=== PATIENT | male | born 1980 | race Caucasian/White ===

== ENCOUNTER 2018-06-11 15:01 | Emergency (ER) | payer OTHER ==
[2018-06-11 15:18] VITALS: BP 143/81; PULSE 68; RESP 18; TEMP 98.3
[2018-06-11] MEDS ORDERED: ONDANSETRON 4 MG/2 ML VIAL IVP STA (15:46)
[2018-06-11] MEDS ORDERED: SODIUM CHLORIDE 0.9% 1,000 ML IV STA (15:46)
[2018-06-11] MEDS ORDERED: MORPHINE SULFATE 4 MG/ML SYRINGE IV STA (15:46)
--- NOTE | 2018-06-11 15:48 | ED ---
General Adult HPI - General Chief complaint: Abdominal Pain Stated complaint: Abd pain Time Seen by Provider: 06/11/18 15:34 Source: patient Mode of arrival: ambulatory Limitations: no limitations - History of Present Illness Initial comments: Dictation was produced using [email or web address] dictation software. please excuse any grammatical, word or spelling errors. Chief Complaint: 38-year-old male past medical history of diverticulitis presents with left lower quadrant abdominal pain. History of Present Illness: There is 38-year-old male. Last year he had an episode of diverticulitis. He states that over the last 2-3 days he's been having left lower quadrant abdominal pain. He states that it reminds him of the time he was diagnosed with diverticulitis. Patient decided come to the emergency department because he was at work and felt like his symptoms were getting worse. Denies any constitutional symptoms. Patient still tolerating by mouth. Denies any changes in bowel habits. No dysuria. Denies any flank pain. The ROS documented in this emergency department record has been reviewed and confirmed by me. Those systems with pertinent positive or negative responses have been documented in the HPI. All other systems are other negative and/or noncontributory. PHYSICAL EXAM: General Impression: Alert and oriented x3, mild distress secondary to pain HEENT: Normocephalic atraumatic, extra-ocular movements intact, pupils equal and reactive to light bilaterally, mucous membranes moist. Cardiovascular: Heart regular rate and rhythm, S1&S2 audible, no murmurs, rubs or gallops Chest: Lungs clear to auscultation bilaterally, no rhonchi, no wheeze, no rales Abdomen: Bowel sounds present, abdomen soft, tenderness to the left lower quadrant Musculoskeletal: Pulses present and equal in all extremities, no peripheral edema Motor: no focal deficits noted Neurological: CN II-XII grossly intact, no focal motor or sensory deficits noted Skin: Intact with no visualized rashes Psych: Normal affect and mood ED course: 38-year-old male presents with chief complaint of left lower quadrant abdominal pain. He has a history of diverticulitis. Vital signs upon arrival are within acceptable limits.Laboratory evaluation tape it looks that doesn't 12.3. Rest of CBC unremarkable. Metabolic panel is unremarkable. Abdominal labs negative. Urinalysis is negative. X-rays unremarkable. Patient reevaluated with improvement of his abdominal symptoms. Clinical presentation consistent with diverticulitis. Given well-appearing nature of patient and benign labs likely uncomplicated. Decided with patient to proceed with the outpatient route. Patient given by mouth antibiotics, pain medications. Patient given referral to primary care physician for outpatient management of symptoms. Return parameters discussed. Patient understandable and agreeable to disposition. - Related Data Home Medications Medication Instructions Recorded Confirmed Ibuprofen [Motrin Ib] 400 mg PO Q8H 06/11/18 06/11/18 Previous Rx's Medication Instructions Recorded HYDROcodone/APAP 5-325MG [[place] 1 tab PO Q6HR PRN 3 Days #12 tab 06/11/18 5-325] Levofloxacin 750 mg PO DAILY #10 tablet 06/11/18 metroNIDAZOLE [Flagyl] 500 mg PO TID 10 Days #30 tab 06/11/18 Allergies Allergy/AdvReac Type Severity Reaction Status Date / Time iodine Allergy Rash/Hives Verified 06/11/18 15:19 shellfish derived [Shellfish] Allergy Rash/Hives Verified 06/11/18 15:51 Review of Systems ROS Statement: Those systems with pertinent positive or pertinent negative responses have been documented in the HPI. ROS Other: All systems not noted in ROS Statement are negative. Past Medical History Additional Past Medical History / Comment(s): divirticulitis, heart murmur History of Any Multi-Drug Resistant Organisms: None Reported Past Surgical History: Appendectomy Past Psychological History: No Psychological Hx Reported Smoking Status: Current some day smoker Past Alcohol Use History: Occasional Past Drug Use History: Marijuana General Exam Limitations: no limitations Course Vital Signs 06/11/18 15:12 Temperature 98.3 F Pulse Rate 68 Respiratory 18 Rate Blood Pressure 143/81 O2 Sat by Pulse 96 Oximetry Medical Decision Making - Lab Data Result diagrams: 06/11/18 15:30 06/11/18 15:30 Lab Results 06/11/18 06/11/18 06/11/18 Range/Units 15:30 15:30 16:00 WBC 12.3 H (3.8-10.6) k/uL RBC 4.70 (4.30-5.90) m/uL Hgb 14.1 (13.0-17.5) gm/dL Hct 42.1 (39.0-53.0) % MCV 89.7 (80.0-100.0) fL MCH 30.1 (25.0-35.0) pg MCHC 33.6 (31.0-37.0) g/dL RDW 13.5 (11.5-15.5) % Plt Count 256 (150-450) k/uL Neutrophils % 74 % Lymphocytes % 14 % Monocytes % 6 % Eosinophils % 5 % Basophils % 1 % Neutrophils # 9.0 H (1.3-7.7) k/uL Lymphocytes # 1.8 (1.0-4.8) k/uL Monocytes # 0.7 (0-1.0) k/uL Eosinophils # 0.6 (0-0.7) k/uL Basophils # 0.1 (0-0.2) k/uL Sodium 140 (137-145) mmol/L Potassium 4.4 (3.5-5.1) mmol/L Chloride 107 (98-107) mmol/L Carbon Dioxide 24 (22-30) mmol/L Anion Gap 9 mmol/L BUN 19 (9-20) mg/dL Creatinine 0.95 (0.66-1.25) mg/dL Est GFR (CKD-EPI)AfAm >90 (>60 ml/min/1.73 sqM) Est GFR (CKD-EPI)NonAf >90 (>60 ml/min/1.73 sqM) Glucose 79 (74-99) mg/dL Calcium 9.9 (8.4-10.2) mg/dL Total Bilirubin 0.4 (0.2-1.3) mg/dL AST 24 (17-59) U/L ALT 24 (21-72) U/L Alkaline Phosphatase 68 (38-126) U/L Total Protein 6.9 (6.3-8.2) g/dL Albumin 4.4 (3.5-5.0) g/dL Lipase 75 (23-300) U/L Urine Color Yellow Urine Appearance Cloudy (Clear) Urine pH 7.0 (5.0-8.0) Ur Specific [place] 1.020 (1.001-1.035) Urine Protein Negative (Negative) Urine Glucose (UA) Negative (Negative) Urine Ketones Negative (Negative) Urine Blood Negative (Negative) Urine Nitrite Negative (Negative) Urine Bilirubin Negative (Negative) Urine Urobilinogen <2.0 (<2.0) mg/dL Ur Leukocyte Esterase Negative (Negative) Urine RBC 1 (0-5) /hpf Urine WBC 3 (0-5) /hpf Ur Squamous Epith Cells <1 (0-4) /hpf Urine Bacteria Rare H (None) /hpf Urine Mucus Rare H (None) /hpf Urine Yeast (Budding) Rare H (None) /hpf Disposition Clinical Impression: Diverticulitis Disposition: HOME SELF-CARE Condition: Good Instructions (If sedation given, give patient instructions): Diverticulitis ( ED) Prescriptions: metroNIDAZOLE [Flagyl] 500 mg PO TID 10 Days #30 tab Levofloxacin 750 mg PO DAILY #10 tablet HYDROcodone/APAP 5-325MG [[place] 5-325] 1 tab PO Q6HR PRN 3 Days #12 tab PRN Reason: Severe Pain Is patient prescribed a controlled substance at d/c from ED?: Yes If prescribed controlled substance>3 days was MAPS reviewed?: Prescribed <3 Days Referrals: Rose Bettencourt MD [REFERRING] - 1-2 days Time of Disposition: 16:42
[2018-06-11 15:58] LABS: Basophils # (A) 0.1 k/uL (0-0.2); Basophils % (A) 1 %; Eosinophils # (A) 0.6 k/uL (0-0.7); Eosinophils % (A) 5 %; HCT 42.1 % (39.0-53.0); HGB 14.1 gm/dL (13.0-17.5); Lymphocytes # (A) 1.8 k/uL (1.0-4.8); Lymphocytes % (A) 14 %; MCH 30.1 pg (25.0-35.0); MCHC 33.6 g/dL (31.0-37.0); MCV 89.7 fL (80.0-100.0); Mean Platelet Volume 7.4; Monocytes # (A) 0.7 k/uL (0-1.0); Monocytes % (A) 6 %; Neutrophils % (A) 74 %; Platelet Count 256 k/uL (150-450); RDW 13.5 % (11.5-15.5); WBC 12.3 k/uL (3.8-10.6)
[2018-06-11 16:07] LABS: ALT 24 U/L (21-72); AST 24 U/L (17-59); Albumin 4.4 g/dL (3.5-5.0); Alkaline Phosphatase 68 U/L (38-126); Anion Gap 9 mmol/L; Blood Urea Nitrogen 19 mg/dL (9-20); Calcium 9.9 mg/dL (8.4-10.2); Carbon Dioxide 24 mmol/L (22-30); Chloride 107 mmol/L (98-107); Glucose 79 mg/dL (74-99); Lipase 75 U/L (23-300); Potassium 4.4 mmol/L (3.5-5.1); Sodium 140 mmol/L (137-145); Total Bilirubin 0.4 mg/dL (0.2-1.3); Total Protein 6.9 g/dL (6.3-8.2)
[2018-06-11 16:12] LABS: Appearance,Urine Cloudy (Clear); Bacteria,Urine Rare /hpf; Bilirubin,Urine Negative (Negative); Blood,Urine Negative (Negative); Budding Yeast,Urine Rare /hpf; Color,Urine Yellow; Glucose,Urine (UA) Negative (Negative); Ketones,Urine Negative (Negative); Leukocyte Esterase,Urine Negative (Negative); Mucus,Urine Rare /hpf; Nitrite,Urine Negative (Negative); Protein,Urine Negative (Negative); RBC,Urine 1 /hpf (0-5); Squamous Epithelial Cell,Urine <1 /hpf (0-4); Urobilinogen,Urine <2.0 mg/dL (<2.0)
--- NOTE | 2018-06-11 16:31 | XR ---
EXAMINATION TYPE: XR KUB DATE OF EXAM: 06/11/2018 COMPARISON: None INDICATION: Abdomen pain TECHNIQUE: Single view abdomen upright view FINDINGS: There is a normal colonic bowel gas pattern. Psoas margins are normal. No organomegaly is present. No suspicious calcifications are evident. No suspicious air-fluid levels or differential air-fluid le vels are present. IMPRESSION: 1. Unremarkable Abdomen
== END 2018-06-11 17:15 | disposition home or self-care (01) ==
LOC: EC 15:01
DX: K57.92 Diverticulitis of intestine, part unspecified, without perforation or abscess without bleeding (principal); F17.200 Nicotine dependence, unspecified, uncomplicated; Z90.49 Acquired absence of other specified parts of digestive tract; Z79.1 Long term (current) use of non-steroidal anti-inflammatories (NSAID); Z91.013 Allergy to seafood; Z91.048 Other nonmedicinal substance allergy status
CPT/HCPCS: 36415; 80053; 83690; 85025; 81001; 74018; 99284; 96374; 96375; 96361; J2270; J2405